=== PATIENT | female | born 1985 | race Caucasian/White ===

== ENCOUNTER 2023-04-27 04:45 | Day surgery (SDC) | payer OTHER ==
[2023-04-25 11:44] VITALS: BMI 22.6
[2023-04-27 11:46] VITALS: TEMP 97.3
[2023-04-27 12:21] VITALS: BP 101/65; PULSE 65; RESP 17
== END 2023-04-27 12:30 | disposition home or self-care (01) ==
LOC: JASU-ENDO 04:45
PROVIDERS: ATTEND Student in an Organized Health Care Education/Training Program
PROC: 0DB78ZX Excision of Stomach, Pylorus, Via Natural or Artificial Opening Endoscopic, Diagnostic (ICD-10-PCS; 2023-04-27)
PROC: 0DB68ZX Excision of Stomach, Via Natural or Artificial Opening Endoscopic, Diagnostic (ICD-10-PCS; principal; 2023-04-27 10:00)
DX: K29.50 Unspecified chronic gastritis without bleeding (principal); K21.00 Gastro-esophageal reflux disease with esophagitis, without bleeding; Z98.84 Bariatric surgery status
CPT/HCPCS: 88305-TC; 88342-TC